=== PATIENT | female | born 1970 | race American Indian/Alaskan Native ===

== ENCOUNTER 2018-12-05 11:26 | Emergency (ER) | payer SELFPAY ==
--- NOTE | 2018-12-05 11:46 | Emergency Department Report ---
Blank Doc - Documentation Documentation: This is a 48-year-old female that presents with left sided lumbar spine pain w ith radiation to left leg. Patient denies any new injuries. This initial assessment/diagnostic orders/clinical plan/treatment(s) is/are subject to change based on patient's health status, clinical progression and re- assessment by fellow clinical providers in the ED. Further treatment and workup at subsequent clinical providers discretion. Patient/guardians urged not to elope from the ED as their condition may be serious if not clinically assessed and managed. Initial orders include: 1- Patient sent to [facility] for further evaluation and treatment 2- xray
[2018-12-05 11:59] VITALS: BP 157/84
--- NOTE | 2018-12-05 12:20 | XRay Report ---
Lumbar spine: Low back pain. AP and lateral projections are included. There is compression fracture of the superior endplate of T12 with volume loss at the T11-12 interspace. The remaining interspaces appear preserved. Bridging spurs are noted anteriorly are between the T11 and T12 bodies. Mild anterior traction spurs are noted at the L1, L2 , and L5 levels. Sclerotic changes are identified involving the apophyseal joints of L4-5 and L5-S1. In the lateral projection T12 is angulated superiorly without subluxation and there is a question of mild L4 anterior subluxation on one of the 2 lateral projections. In the frontal projection there is a rotational dextroscoliosis. The bones appear generally well mineralized. Impression: 1. Chronic compression of the T12 superior endplate and the T11-12 interspace. 2. Dextroscoliosis. 3. Degenerative and apophyseal joints from L4-S1.
[2018-12-05] MEDS ORDERED: ULTRAM PO ONE (12:27)
[2018-12-05] MEDS ORDERED: IBUPROFEN PO ONE (12:27)
--- NOTE | 2018-12-05 12:59 | Emergency Department Report ---
ED Back Pain/Injury HPI - General Chief Complaint: Pain General Stated Complaint: BODY PAIN Time Seen by Provider: 12/05/18 11:43 Source: patient Limitations: No Limitations - History of Present Illness Initial Comments: Patient is a 48-year-old female who is presenting with low back pain or radiation down the left leg. Patient states her daughter who is translating that she's had pain for the past month off and on. Is worse with activity and better with rest. Patient does have a history of remote fall several years ago but is not sure what type of injury she suffered since she was [place] this country. Patient denying any bowel or bladder dysfunction at this time. She denies abdominal pain dysuria vaginal bleeding or vaginal discharge. Patient states the pain is an 8 out of 10 in severity at its worst. MD Complaint: back pain - Related Data Previous Rx's Medication Instructions Recorded Last Taken Type Ibuprofen [Ibu] 800 mg PO Q8H PRN #20 tablet 12/05/18 Unknown Rx methOCARBAMOL [Robaxin TAB] 500 mg PO Q6H PRN #14 tablet 12/05/18 Unknown Rx traMADol [Ultram] 50 mg PO Q6HR PRN #12 tablet 12/05/18 Unknown Rx Allergies Allergy/AdvReac Type Severity Reaction Status Date / Time No Known Allergies Allergy Verified 12/05/18 11:28 ED Review of Systems ROS: Stated complaint: BODY PAIN Other details as noted in HPI Comment: All other systems reviewed and negative ED Past Medical Hx - Past Medical History poor Historian ED Back Pain Physical Exam - Exam General: Vital signs noted. No distress. Alert and acting appropriately. Back/Abdomen: Yes Perilumbar Tenderness (left sided), No Abdominal Tenderness, No Perithoracic Tenderness, No Sacroiliac Tenderness, No Flank Tenderness, No Straight Leg Raise Pain Neuro: Yes Normal Sensation, Yes Normal DTR's, Yes Normal Gait, No Motor Weakness ED Course Vital Signs 12/05/18 12/05/18 12/05/18 11:43 12:42 12:43 Temperature 98.6 F Pulse Rate 80 Respiratory 18 18 18 Rate Blood Pressure 157/84 O2 Sat by Pulse 98 Oximetry ED Medical Decision Making - Radiology Data [facility] [address] [place] [address] XRay Report Signed Patient: FERNANDO DA SILVA MR#: [id number] : 1970 Acct:[id number] Age/Sex: 48 / F ADM Date: 12/05/18 Loc: ED Attending Dr: Ordering Physician: DONNIE GRAVES NP Date of Service: 12/05/18 Procedure(s): XR spine lumbosacral 2-3V Accession Number(s): [id number] cc: DONNIE GRAVES NP Fluoro Time In Minutes: Lumbar spine: Low back pain. AP and lateral projections are included. There is compression fracture of the superior endplate of T12 with volume loss at the T11-12 interspace. The remaining interspaces appear preserved. Bridging spurs are noted anteriorly are between the T11 and T12 bodies. Mild anterior traction spurs are noted at the L1, L2 , and L5 levels. Sclerotic changes are identified involving the apophyseal joints of L4-5 and L5-S1. In the lateral projection T12 is angulated superiorly without subluxation and there is a question of mild L4 anterior subluxation on one of the 2 lateral projections. In the frontal projection there is a rotational dextroscoliosis. The bones appear generally well mineralized. Impression: 1. Chronic compression of the T12 superior endplate and the T11-12 interspace. 2. Dextroscoliosis. 3. Degenerative and apophyseal joints from L4-S1. Transcribed By: LORAINE Dictated By: WILLARD MILLER MD Electronically Authenticated By: WILLARD MILLER MD Signed Date/Time: 12/05/18 1213 - Medical Decision Making patient likely with simple sciatic nerve irritation. Patient does have a history of a chronic T12 compression fracture. Patient referred to orthopedics patient be given symptomatic relief. Critical care attestation.: If time is entered above; I have spent that time in minutes in the direct care of this critically ill patient, excluding procedure time. ED Disposition Clinical Impression: Back pain with left-sided sciatica Disposition: - TO HOME OR SELFCARE Is pt being admited?: No Does the pt Need Aspirin: No Condition: Stable Instructions: Lumbar Radiculopathy (ED) Referrals: WILLARD IRELAND MD [Staff Physician] - 3-5 Days Time of Disposition: 12:59
== END 2018-12-05 13:09 | disposition home or self-care (01) ==
LOC: ED 11:26
DX: M54.32 Sciatica, left side (principal)
CPT/HCPCS: 72100

== ENCOUNTER 2020-06-26 11:49 | Emergency (ER) | payer OTHER ==
[2020-06-26 12:22] VITALS: BP 133/84
[2020-06-26] MEDS ORDERED: KETOROLAC 60 MG/2 ML INJ IM ONE (16:20)
--- NOTE | 2020-06-26 16:26 | Emergency Department Report ---
ED General Adult HPI - General Chief complaint: Pain General Stated complaint: BODY PAIN Time Seen by Provider: 06/26/20 16:05 Source: patient Mode of arrival: Ambulatory Limitations: No Limitations - History of Present Illness Initial comments: 49-year-old female. Her daughter is able to translate at patient's preference. Patient reports pain of her lower back pain which radiates down her right leg she has had similar complaints and been seen in the emergency room for the same complaint. She denies any falls or trauma. She denies any bowel or bladder incontinence. She denies any urinary frequency or dysuria. She denies abdominal pain no nausea no vomiting no chest pain no shortness of breath -: Last night Radiation: back Quality: aching Consistency: constant Improves with: none Worsens with: none Associated Symptoms: denies other symptoms Treatments Prior to Arrival: none - Related Data Previous Rx's Medication Instructions Recorded Last Taken Type Ibuprofen [Ibu] 800 mg PO Q8H PRN #20 tablet 12/05/18 Unknown Rx methOCARBAMOL [Robaxin TAB] 500 mg PO Q6H PRN #14 tablet 12/05/18 Unknown Rx traMADoL [Ultram] 50 mg PO Q6HR PRN #12 tablet 12/05/18 Unknown Rx Ibuprofen [Motrin] 800 mg PO Q8HR PRN #21 tablet 06/26/20 Unknown Rx Methocarbamol [Robaxin] 500 mg PO Q12H #14 tablet 06/26/20 Unknown Rx Allergies Allergy/AdvReac Type Severity Reaction Status Date / Time No Known Allergies Allergy Verified 12/05/18 11:28 ED Review of Systems ROS: Stated complaint: BODY PAIN Other details as noted in HPI Comment: All other systems reviewed and negative Constitutional: denies: chills, fever Eyes: denies: eye discharge ENT: denies: ear pain, throat pain, dental pain Respiratory: denies: cough Cardiovascular: denies: chest pain Endocrine: denies: intolerance to cold Genitourinary: frequency. denies: dysuria Musculoskeletal: back pain (right paraspinal radiating down right left. Negative straight leg raises bilaterally. No vertebral point-tenderness. ) Skin: denies: rash, lesions Neurological: denies: headache, weakness, numbness, paresthesias Psychiatric: denies: anxiety, depression ED Past Medical Hx - Past Medical History Previous Medical History?: Yes Additional medical history: poor Historian, Bodyaches and pains - Surgical History Past Surgical History?: No Additional Surgical History: poor Historian - Social History Smoking Status: Never Smoker Substance Use Type: None - Medications Home Medications: Home Medications Medication Instructions Recorded Confirmed Last Taken Type Ibuprofen [Ibu] 800 mg PO Q8H PRN #20 tablet 12/05/18 Unknown Rx methOCARBAMOL [Robaxin TAB] 500 mg PO Q6H PRN #14 tablet 12/05/18 Unknown Rx traMADoL [Ultram] 50 mg PO Q6HR PRN #12 tablet 12/05/18 Unknown Rx Ibuprofen [Motrin] 800 mg PO Q8HR PRN #21 tablet 06/26/20 Unknown Rx Methocarbamol [Robaxin] 500 mg PO Q12H #14 tablet 06/26/20 Unknown Rx ED Physical Exam - General Limitations: No Limitations General appearance: alert, in no apparent distress - Head Head exam: Present: atraumatic - Eye Eye exam: Present: normal appearance - ENT ENT exam: Present: normal exam - Neck Neck exam: Present: normal inspection - Respiratory Respiratory exam: Present: normal lung sounds bilaterally, respiratory distress - Cardiovascular Cardiovascular Exam: Present: regular rate, normal rhythm, normal heart sounds - GI/Abdominal GI/Abdominal exam: Present: soft, normal bowel sounds. Absent: distended, tenderness, guarding - Extremities Exam Extremities exam: Present: normal inspection, normal capillary refill - Back Exam Back exam: Present: normal inspection, full ROM, paraspinal tenderness (right ). Absent: CVA tenderness (R), CVA tenderness (L), vertebral tenderness - Neurological Exam Neurological exam: Present: alert, oriented X3 - Psychiatric Psychiatric exam: Present: normal affect - Skin Skin exam: Present: warm, dry, intact, normal color ED Course Vital Signs 06/26/20 06/26/20 12:19 16:47 Temperature 97.8 F Pulse Rate 78 Respiratory 20 18 Rate Blood Pressure 133/84 O2 Sat by Pulse 96 Oximetry ED Medical Decision Making - Medical Decision Making Patient ambulating with steady gait in the emergency room anxious to go home. States that this is her chronic pain and she just needs medicine to relieve. I explained to patient the importance of follow-up outside follow-up with her primary care doctor Critical Care Time: No Critical care attestation.: If time is entered above; I have spent that time in minutes in the direct care of this critically ill patient, excluding procedure time. ED Disposition Clinical Impression: Back pain Qualifiers: Back pain location: low back pain Chronicity: chronic Back pain laterality: right Sciatica presence: with sciatica Sciatica laterality: sciatica of right side Qualified Code(s): M54.41 - Lumbago with sciatica, right side Disposition: TO HOME OR SELFCARE Is pt being admited?: No Does the pt Need Aspirin: No Condition: Stable Instructions: Chronic Back Pain (ED) Additional Instructions: Rest continue gentle stretching exercises. Take ibuprofen and muscle relaxant as needed for pain. Follow-up with your primary care doctor or the doctor I gave you for and referral return to the emergency room for any bowel or bladder incontinence or worsening pain Prescriptions: Ibuprofen [Motrin] 800 mg PO Q8HR PRN #21 tablet PRN Reason: Pain , Severe (7-10) Methocarbamol [Robaxin] 500 mg PO Q12H #14 tablet Referrals: PRIMARY MD AGUSTIN [Primary Care Provider] - 3-5 Days TRENT TUCKER MD [Staff Physician] - 3-5 Days Time of Disposition: 16:27
== END 2020-06-26 16:49 | disposition home or self-care (01) ==
LOC: ED 11:49
DX: M54.5 Low back pain (principal); M79.604 Pain in right leg; Z79.1 Long term (current) use of non-steroidal anti-inflammatories (NSAID); Z79.899 Other long term (current) drug therapy
CPT/HCPCS: 96372; 99282; J1885

== ENCOUNTER 2021-03-09 14:19 | Emergency (ER) | payer OTHER ==
[2021-03-09] MEDS ORDERED: KETOROLAC 60 MG/2 ML INJ IM ONE (15:17)
[2021-03-09] MEDS ORDERED: predniSONE 20 MG TAB PO ONE (15:17)
[2021-03-09 16:44] VITALS: BP 134/70
--- NOTE | 2021-03-09 16:56 | Emergency Department Report ---
ED Neck Pain/Injury HPI - General Chief Complaint: Back Pain/Injury Stated Complaint: BODY PAIN Time Seen by Provider: 03/09/21 15:16 Mode of arrival: Ambulatory Limitations: No Limitations - History of Present Illness Initial Comments: This is a 50-year-old female nontoxic, well nourished in appearance, no acute signs of distress presents to the ED with c/o of left upper back pain times several days. Patient stated that the past few days she was heavy lifting and developed this pain. Patient denies any radiation of pain. Patient denies any injuries or trauma. Patient stated pain is improved with rest and worsened with movement. Denies any bladder or bowel instability. Patient denies any urinary symptoms. Denies any fever, chills, nausea, vomiting, headache, stiff neck, chest pain or shortness of breath. Patient denies any numbness or tingling. Patient allergies amoxicillin. Denies significant past medical history. Patient family member present during interview and physical exam for translation purposes. MD Complaint: upper back pain -: days(s) Place: home Severity: mild Severity scale (0 -10): 3 Quality: aching Consistency: intermittent Improves With: rest supine Worsens With: movement of neck Associated Symptoms: none. denies: headache, fever, numbness, tingling, weakness, vertigo, difficulty walking, swollen glands, difficulty swallowing, nausea, vomiting Treatments Prior to Arrival: none - Related Data Previous Rx's Medication Instructions Recorded Last Taken Type Ibuprofen [Ibu] 800 mg PO Q8H PRN #20 tablet 12/05/18 Unknown Rx methOCARBAMOL [Robaxin TAB] 500 mg PO Q6H PRN #14 tablet 12/05/18 Unknown Rx traMADoL [Ultram] 50 mg PO Q6HR PRN #12 tablet 12/05/18 Unknown Rx Ibuprofen [Motrin] 800 mg PO Q8HR PRN #21 tablet 06/26/20 Unknown Rx Methocarbamol [Robaxin] 500 mg PO Q12H #14 tablet 06/26/20 Unknown Rx Cyclobenzaprine [Flexeril] 10 mg PO QHS PRN #10 tablet 03/09/21 Unknown Rx Naproxen 500 mg PO Q12H PRN #12 tablet 03/09/21 Unknown Rx Allergies Allergy/AdvReac Type Severity Reaction Status Date / Time No Known Allergies Allergy Verified 04/04/19 11:28 ED Review of Systems ROS: Stated complaint: BODY PAIN Other details as noted in HPI Comment: All other systems reviewed and negative Constitutional: denies: chills, fever Eyes: denies: eye pain, eye discharge, vision change ENT: denies: ear pain, throat pain Respiratory: denies: cough, shortness of breath, wheezing Cardiovascular: denies: chest pain, palpitations Endocrine: no symptoms reported Gastrointestinal: denies: abdominal pain, nausea, diarrhea Genitourinary: denies: urgency, dysuria, discharge Musculoskeletal: denies: back pain, joint swelling, arthralgia Skin: denies: rash, lesions Neurological: denies: headache, weakness, paresthesias Psychiatric: denies: anxiety, depression Hematological/Lymphatic: denies: easy bleeding, easy bruising ED Past Medical Hx - Past Medical History Previous Medical History?: No Additional medical history: poor Historian, Bodyaches and pains - Surgical History Additional Surgical History: poor Historian - Social History Smoking Status: Unknown if ever smoked - Medications Home Medications: Home Medications Medication Instructions Recorded Confirmed Last Taken Type Ibuprofen [Ibu] 800 mg PO Q8H PRN #20 tablet 12/05/18 Unknown Rx methOCARBAMOL [Robaxin TAB] 500 mg PO Q6H PRN #14 tablet 12/05/18 Unknown Rx traMADoL [Ultram] 50 mg PO Q6HR PRN #12 tablet 12/05/18 Unknown Rx Ibuprofen [Motrin] 800 mg PO Q8HR PRN #21 tablet 06/26/20 Unknown Rx Methocarbamol [Robaxin] 500 mg PO Q12H #14 tablet 06/26/20 Unknown Rx Cyclobenzaprine [Flexeril] 10 mg PO QHS PRN #10 tablet 03/09/21 Unknown Rx Naproxen 500 mg PO Q12H PRN #12 tablet 03/09/21 Unknown Rx ED Physical Exam - General Limitations: No Limitations General appearance: alert, in no apparent distress - Head Head exam: Present: atraumatic, normocephalic - Eye Eye exam: Present: normal appearance, PERRL, EOMI - ENT ENT exam: Present: normal exam, normal orophraynx - Neck Neck exam: Present: normal inspection, full ROM. Absent: tenderness, meningismus, lymphadenopathy - Respiratory Respiratory exam: Absent: respiratory distress - Cardiovascular Cardiovascular Exam: Present: regular rate - Extremities Exam Extremities exam: Present: normal inspection, full ROM, normal capillary refill. Absent: tenderness, joint swelling - Back Exam Back exam: Present: normal inspection, full ROM, paraspinal tenderness (Left cervical paraspinal). Absent: tenderness, CVA tenderness (R), CVA tenderness (L), muscle spasm, vertebral tenderness, rash noted - Neurological Exam Neurological exam: Present: alert, oriented X3, normal gait - Psychiatric Psychiatric exam: Present: normal affect, normal mood - Skin Skin exam: Present: warm, dry, intact, normal color. Absent: rash ED Course Vital Signs 03/09/21 03/09/21 15:16 16:43 Temperature 98.6 F Pulse Rate 77 78 Respiratory 18 18 Rate Blood Pressure 135/73 Blood Pressure 134/70 [Left] O2 Sat by Pulse 99 100 Oximetry - Reevaluation(s) Reevaluation #1: 03/09/21 16:54 Patient is speaking in full sentences with no signs of distress noted. ED Medical Decision Making - Medical Decision Making This is a 50-year-old female that presents with upper back strain. Patient is stable was examined by me. There is no spinal tenderness. There is no cauda equina syndrome during examination. No bladder or bowel instability. Patient received Toradol 60 mg IM and prednisone in the ED which stated that his symptoms has resolved and subsided. Patient is discharged with muscle relaxant and naproxen. Patient was instructed not to operate any machinery while taking muscle relaxant as they cause her drowsiness. Patient was referred to Follow-up with a primary care doctor in 3-5 days or if symptoms worsen and continue return to emergency room as soon as possible. At time of discharge, the patient does not seem toxic or ill in appearance. No acute signs of distress noted. Patient agrees to discharge treatment plan of care. No further questions noted by the patient. This chart is dictated with using [employer] Critical care attestation.: If time is entered above; I have spent that time in minutes in the direct care of this critically ill patient, excluding procedure time. ED Disposition Clinical Impression: Cervical muscle strain Qualifiers: Encounter type: initial encounter Qualified Code(s): S16.1XXA - Strain of muscle, fascia and tendon at neck level, initial encounter Disposition: - TO HOME OR SELFCARE Is pt being admited?: No Does the pt Need Aspirin: No Condition: Stable Instructions: Muscle Strain, [id number], Cyclobenzaprine tablets Additional Instructions: Follow-up with your primary care doctor in 3-5 days or if symptoms worsen such as bladder or bowel stability, chest pain, short of breath, numbness or tingling sensation in extremities, headache, dizziness, visual changes, nausea vomiting, or abdominal pain, return back to emergency room as was possible. Take naproxen and Flexeril as prescribed. Do not operate heavy machinery while taking Flexeril due to sedation Prescriptions: Cyclobenzaprine [Flexeril] 10 mg PO QHS PRN #10 tablet PRN Reason: Muscle Spasm Naproxen 500 mg PO Q12H PRN #12 tablet PRN Reason: Pain , Severe (7-10) Referrals: PRIMARY CAREMD [Referring] - 3-5 Days TRENT TUCKER MD [Staff Physician] - 3-5 Days Time of Disposition: 16:56
== END 2021-03-09 17:21 | disposition home or self-care (01) ==
LOC: ED 14:19
DX: S16.1XXA Strain of muscle, fascia and tendon at neck level, initial encounter (principal); Z79.1 Long term (current) use of non-steroidal anti-inflammatories (NSAID); Z79.899 Other long term (current) drug therapy; X50.0XXA Overexertion from strenuous movement or load, initial encounter; Y93.89 Activity, other specified; Y92.89 Other specified places as the place of occurrence of the external cause; Y99.8 Other external cause status
CPT/HCPCS: 96372; 99282; J1885; J7512